=== PATIENT | male | born 1965 | race African-American/Black ===

== ENCOUNTER 2025-05-10 06:03 | Observation (INO) | payer BC ==
[2025-05-10 06:56] LABS: Hematocrit 43.1 % (42.0-52.0); Hemoglobin 14.1 g/dL (14.0-18.0); Mean Corpuscular Hemoglobin 31.1 pg (27.0-31.0); Mean Corpuscular Volume 95.1 fL (78.0-98.0); Platelet Count 206 10x3/uL (130-400); Red Blood Cell (RBC) Count 4.53 mill/uL (4.70-6.10); White Blood Cell (WBC) Count 5.87 10x3/uL (4.8-10.8)
[2025-05-10 07:19] LABS: ALT (SGPT) 16 U/L (Less than 45); AST (SGOT) 36 U/L (11-34); Albumin 3.6 g/dL (3.1-4.5); Alkaline Phosphatase 114 U/L (40-110); Anion Gap 14 mmol/L (10-20); BUN (Urea Nitrogen) 23 mg/dL (8.4-25.7); Bilirubin, Total 0.3 mg/dL (0.3-1.2); Calc. Creatinine Clearance 0 mL/min (70-130); Calcium 8.8 mg/dL (7.8-10.44); Carbon Dioxide 19 mmol/L (22-29); Chloride 110 mmol/L (98-107); Globulin 4.4 g/dL (2.4-3.5); Glucose 92 mg/dL (70-105); Lipase 74 U/L (8-78); Magnesium 2.2 mg/dL (1.6-2.6); Potassium 3.1 mmol/L (3.5-5.1); Sodium 140 mmol/L (136-145)
[2025-05-10 07:38] LABS: Platelet Adequacy Comment Platelets Normal
[2025-05-10 08:21] LABS: Acetaminophen Less than 10 mcg/mL (Less than 10); Salicylate Less than 8.0 mg/dL (Less than 8.0)
[2025-05-10] MEDS ORDERED: Potassium Bicarbonate/Cit Ac 20 MEQ TAB ONE (08:42)
[2025-05-10] MEDS ORDERED: Enoxaparin 100 MG (1 mL) SYRINGE ONE (09:17)
[2025-05-10] MEDS ORDERED: Dextrose 50% Abboject 50 ML SYRINGE SLOW IVP PRN (09:35)
[2025-05-10] MEDS ORDERED: Ondansetron PF 4 MG/2 ML Vial IVP PRN (09:35)
[2025-05-10] MEDS ORDERED: Glucagon 1 MG/ML KIT IM PRN (09:35)
[2025-05-10] MEDS ORDERED: Iopamidol-370 76% 500 ML MDV (1 ML CHARGE) ONE (10:21)
[2025-05-10 10:51] VITALS: BMI 34.3
[2025-05-10] MEDS ORDERED: Meloxicam 15 MG TAB PO PRN (10:55)
[2025-05-10] MEDS ORDERED: Methocarbamol 500 MG TAB PO PRN (10:55)
[2025-05-10] MEDS ORDERED: Famotidine 20 MG TAB PO SCH (21:00)
[2025-05-10] MEDS: Acetaminophen 500 MG TAB PO PRN (21:38)
[2025-05-11 05:40] LABS: #Basophils 0.04 10x3/uL (0.0-0.2); #Eosinophils 0.25 10x3/uL (0.0-0.7); #Monocytes 0.43 10x3/uL (0.11-0.59); #Neutrophils 2.72 10x3/uL (1.40-6.50); %Basophils 0.6 % (0.0-1.0); %Eosinophils 3.7 % (0.0-10.0); %Lymphocytes 48.9 % (21.0-51.0); %Monocytes 6.4 % (0.0-10.0); %Neutrophils 40.3 % (42.0-75.0); Hematocrit 44.6 % (42.0-52.0); Hemoglobin 14.4 g/dL (14.0-18.0); Mean Corpuscular Hemoglobin 30.8 pg (27.0-31.0); Mean Corpuscular Volume 95.5 fL (78.0-98.0); Platelet Count 157 10x3/uL (130-400); Red Blood Cell (RBC) Count 4.67 mill/uL (4.70-6.10); White Blood Cell (WBC) Count 6.75 10x3/uL (4.8-10.8)
[2025-05-11 05:55] LABS: ALT (SGPT) 15 U/L (Less than 45); AST (SGOT) 32 U/L (11-34); Albumin 3.1 g/dL (3.1-4.5); Alkaline Phosphatase 101 U/L (40-110); Anion Gap 12 mmol/L (10-20); BUN (Urea Nitrogen) 10 mg/dL (8.4-25.7); Bilirubin, Total 0.2 mg/dL (0.3-1.2); Calc. Creatinine Clearance 116 mL/min (70-130); Calcium 8.4 mg/dL (7.8-10.44); Carbon Dioxide 21 mmol/L (22-29); Chloride 111 mmol/L (98-107); Globulin 4.3 g/dL (2.4-3.5); Glucose 83 mg/dL (70-105); Potassium 3.4 mmol/L (3.5-5.1); Sodium 141 mmol/L (136-145)
[2025-05-11] MEDS: Pantoprazole 40 MG DR.TAB PO SCH (09:23)
[2025-05-11] MEDS ORDERED: Acetaminophen 500 MG TAB PO PRN (10:00)
[2025-05-11] MEDS ORDERED: Acetaminophen 325 MG TAB PO PRN (10:15)
[2025-05-11 11:12] VITALS: TEMP 98.2
[2025-05-11 15:11] VITALS: BP 174/97
[2025-05-11] MEDS ORDERED: Non-Formulary Item 1 EACH (Tizanidine Hcl [Tizanidine Hcl] 4 MG Capsule) PO SCH (21:00)
== END 2025-05-11 14:09 | disposition home or self-care (01) ==
LOC: ERS 06:03 → OBS 09:07
PROVIDERS: ADMIT Family Medicine; ATTEND Family Medicine
PROC: B24BZZZ Ultrasonography of Heart with Aorta (ICD-10-PCS; principal; 2025-05-11)
DX: I95.1 Orthostatic hypotension (principal); E87.6 Hypokalemia; N17.9 Acute kidney failure, unspecified; I10 Essential (primary) hypertension; E11.9 Type 2 diabetes mellitus without complications; E78.5 Hyperlipidemia, unspecified; K74.60 Unspecified cirrhosis of liver; K21.9 Gastro-esophageal reflux disease without esophagitis; Z91.048 Other nonmedicinal substance allergy status; Z79.84 Long term (current) use of oral hypoglycemic drugs; Z79.899 Other long term (current) drug therapy
CPT/HCPCS: 36415; 36416; 70450; 71045; 71275; 72125; 80053; 80307; 83036; 83605; 83690; 83735; 83880; 84443; 84484; 85025; 87040; 93005; 93306; 93880; 93970; 96360; 96361; 96372; G0378; J1650; J7030; Q9967